=== PATIENT | female | born 1935 | race Caucasian/White ===

== ENCOUNTER → 2016-10-01 | Outpatient (CLI) | payer OTHER | LOC: MMPC 09:00 | PROVIDERS: ATTEND Family Medicine | DX: I10 Essential (primary) hypertension (principal); Z78.0 Asymptomatic menopausal state; J34.89 Other specified disorders of nose and nasal sinuses | CPT/HCPCS: 99214 ==

== ENCOUNTER → 2016-10-03 | Outpatient (CLI) | payer OTHER ==
[2016-10-03 11:04] LABS: BILIRUBIN,TOTAL 0.6 mg/dL (0.3-1.2); LDL CHOLESTEROL,CALCULATED 133.6 mg/dL; TOTAL PROTEIN 7.2 g/dL (6.1-8.0)
[2016-10-03 11:25] LABS: FREE T4 (FREE THYROXINE) 0.79 ng/dL (0.93-1.71)
== END ==
LOC: MOB LAB 09:26
PROVIDERS: ATTEND Family Medicine
DX: I10 Essential (primary) hypertension (principal)
CPT/HCPCS: 36415; 80061; 80076; 84439; 84443

== ENCOUNTER 2016-10-31 16:26 | Observation (INO) | payer OTHER ==
[2016-10-31] MEDS ORDERED: Sodium Chloride 0.9% 1,000 ML PRIMARY IV ONE (16:52)
[2016-10-31] MEDS ORDERED: KETOROLAC 15 MG/1 ML VIAL IVP ONE (16:52)
[2016-10-31] MEDS ORDERED: ONDANSETRON 4 MG/2 ML VIAL IVP ONE (16:52)
[2016-10-31] MEDS ORDERED: MECLIZINE 25 MG CHEWABLE TABLET PO ONE (16:52)
--- NOTE | 2016-10-31 17:01 | PDOC ---
Gen Adult / Medical Screen HPI - General Chief Complaint: General Medical Stated Complaint: dizziness Date Seen by Provider: 10/31/16 Time Seen by Provider: 16:56 Source: POSITIVE: Patient, Other (daughter) Exam Limitations: POSITIVE: No limitations Nurse's Notes Reviewed & Considered: Yes - Indicators Temperature Between 95 and 101 Degrees: Yes Respirations Between 12 and 20: Yes Blood Pressure Between 100-165 (sys) and 60-100 (love): Yes Pulse Range Between 60-105 (100 for age > 60 years): Yes Severe Pain (Greater than 5/10 Reported): No Chest or Abdominal Pain: No Inability to Walk: No Pt Reports Active High Risk Cond. (TB/Hepatitis/HIV/Chemo): No Abnormal Mental Status: No - History of Present Illness Initial Comments: Patient was in her normal state of health this morning, then immediately after lunch began to experience dizziness. She had difficulty ambulating, at one point following an requiring assistance to rise. She arrives here for further evaluation complaining of nausea, dizziness, and feeling as though the world is spinning. Her symptoms were initiated by pain in her right neck. She denies any fever or chills sweats, vomiting, diarrhea, no rashes, no hematuria dysuria. Body Location Affected: REPORTS: Head Timing: REPORTS: Abrupt Duration: 4-6 hours Similar Symptoms Previously: No Recent Care Received: REPORTS: Denies Any Prior Injuries Related to Current Complaint?: No - Patient Home Medications Home Medications: Home Medications Ergocalciferol (Vitamin D2) [Vitamin D2] 1.25 mg ORAL WEEKLY #8 tab 05/04/14 Lisinopril/Hydrochlorothiazide [Lisinopril-Hctz 20-25 Mg Tab] 1 each PO DAILY # 30 tab 08/15/16 Estradiol Vaginal Cream 0.01% [Estrace Vaginal Cream 0.01%] 1 applic VAGINAL QD #1 tube 08/21/16 Brimonidine Tartrate/Timolol [Combigan 0.2%-0.5% Eye Drops] 1 drop OP QD #1 drop 10/01/16 - Patient Allergies Allergies/Adverse Reactions: Allergies Allergy/AdvReac Type Severity Reaction Status Date / Time Penicillins Allergy Intermediate DYSPHORIA Verified 10/31/16 16:34 Shellfish *RETIRED-05/21/12 Allergy Intermediate DYSPHORIA Verified 10/31/16 16: 34 [Shellfish] Past Medical History - heen HEENT History: Macular Degeneration, Dentures/Partials Cardiovascular History: Hypertension Respiratory History: Denies History Gastrointestinal History: Other (please comment) Additional Gastrointestinal History: LOLA, OCCASIONAL CONSTIPATION Genitourinary History: Denies History Endocrine History: Denies History Musculoskeletal History: Osteoporosis, Osteoporosis Prosthesis or Implant: Yes (LEFT KNEE) Neurological History: Motion Sickness Blood Disorders: Denies History Psychiatric History: Denies History History of Sexually Transmitted Diseases: No Female Reproductive History: Other (please comment) Additional Female Reproductive History: tubal ligation Cancer History: Skin Cancer Treatment / Date(s) of Treatment: REMOVED In Past Year Been Physically Harmed or Verbally Threatened: No History of MDRO: No History of Other Communicable Diseases: No Tobacco Use: Never Smoker Alcohol Use: None Substance Use Type: None Previous Surgical History: Yes Type / Date of Surgery: BREAST BX/ LOLA/ COLONOSCOPY/ LEFT KNEE SCOPE/ LEFT TKA / TUBAL Anesthesia Reactions: No Malignant Hyperthermia: No Significant Family History: Heart disease ROS - Limitations ROS Limitations: No Limitations Constitution: REPORTS: Denies Symptoms Cardiovascular: REPORTS: Denies Cardiac Symptoms Respiratory: REPORTS: Denies Resp Symptoms Neurological: REPORTS: Dizziness Gastrointestinal: REPORTS: Nausea Endocrine: REPORTS: Denies Symptoms Musculoskeletal: REPORTS: Neck Pain Genitourinary: REPORTS: Denies Symptoms Eyes: REPORTS: Denies Symptoms ENT: REPORTS: Denies Symptoms Skin: REPORTS: Denies Skin Symptoms Lympathic: REPORTS: Denies Lympathic Symptoms Immunologic: POSITIVE: Denies Symptoms Psychiatric: POSITIVE: Denies Psych Symptoms Gen Adult/Medical Screen Exam - General Appearance General Appearance: POSITIVE: Alert, Cooperative, No Acute Distress, No Evidence of Trauma - HEENT HEENT: POSITIVE: Head Inspection Nml, Eyes Inspection Nml, Ears Inspection Nml, Nose Inspection Nml, Oral/Dental Inspect. Nml, Pharynx Inspect. Nml, PERRL, EOMI - Pupils Pupil Size: 4 mm: Bilateral - Neck Neck: POSITIVE: Normal Inspection, Thyroid Normal - Respiratory Respiratory: POSITIVE: No Respiratory Distress, Breath Sounds Normal, Chest Non- Tender - Cardiovascular Cardiovascular: POSITIVE: Regular Rate & Rhythm, No Murmur, No Gallop, PMI Normal Peripheral Pulses: Carotid (R): 4+ (no bruit), Carotid (L): 4+ (no bruit), Radial (R): 3+, Radial (L): 3+ - Abdomen Abdomen: Soft: (All Quadrants), Normal Bowel Sounds: (All Quadrants), Denies Tenderness: (All Quadrants) - Back Back: POSITIVE: Normal Inspection - Neurological / Psychological Mental Status: POSITIVE: Mood Normal, Affect Normal Orientation: POSITIVE: Oriented x 3 Reflexes: Radial (R): 3+, Radial (L): 3+ - Skin Skin: POSITIVE: Normal Color, Warm, Dry, No Rash - Extremities Extremity: Non-Tender: (All Extremities), Normal ROM: (All Extremities), Normal Inspection: (All Extremities) Procedures - Laceration/Wound Repair Did patient have a laceration repair: No Gen Adlt/Medical Scrn Progress - Results Reviewed by me Xrays/CTs/US Reviewed by me: Yes Discussed with Radiologist: Yes Lab Results Reviewed: Yes Lab Results:: Laboratory Results 10/31/16 10/31/16 Range/Units 16:42 16:52 WBC 8.05 (4.8-10.8) 10^3/uL RBC 4.55 (4.20-5.40) 10^6/uL Hgb 13.9 (12.0-16.0) g/dL Hct 41.0 (37.0-47.0) % MCV 90.1 (81-99) FL MCH 30.5 (27-31) PG MCHC 33.9 (33-37) g/dL RDW Std Deviation 41.2 (39-50) fL RDW Coeff of Gabriel 12.7 (11.5-14.5) % Plt Count 243 (140-350) 10*3/uL MPV 11.1 (7.4-12.2) FL Immature Gran % (Auto) 0.1 (0-5) % Neut % (Auto) 70.4 (50-80) % Lymph % (Auto) 22.0 (10-50) % [place] % (Auto) 6.7 (5-15) % Eos % (Auto) 0.7 (0-8) % Baso % (Auto) 0.1 (0-1) % Immature Gran # (Auto) 0.01 10*3/UL Neut # (Auto) 5.66 10*3/UL Lymph # (Auto) 1.77 10*3/uL [place] # (Auto) 0.54 (0.3-0.8) 10*3/UL Eos # (Auto) 0.06 10*3/UL Baso # (Auto) 0.01 10*3/UL WBC Morphology Comment Normal morphology (NORM) Plt Morphology Comment Normal morphology (NORM) RBC Morph Comment Normal morphology (NORM) Sodium 139 (135-145) meq/L Potassium 3.9 (3.8-5.2) meq/L Chloride 103 (98-112) meq/L Carbon Dioxide 24 (23-33) meq/L Anion Gap 12 (5-20) BUN 20 (7-22) mg/dL Creatinine 0.9 (0.50-1.20) mg/dL Estimated GFR (>60 ml/min/1.73m(2)) BUN/Creatinine Ratio 22.22 H (6-20) Glucose 125 H (78-110) mg/dL Calculated Osmolality 291.0 (267-292) mOsm/kg Calcium 9.8 (8.7-10.7) mg/dL Magnesium 2.0 (1.6-2.4) mg/dL Total Bilirubin 0.4 (0.3-1.2) mg/dL AST 22 (8-39) IU/L ALT 27 (9-52) IU/L Alkaline Phosphatase 123 (38-126) IU/L Total Protein 7.6 (6.1-8.0) g/dL Albumin 4.4 (3.5-4.8) g/dL Globulin 3.3 (2.50-4.10) g/dL Albumin/Globulin Ratio 1.30 (1.3-2.0) mg/g TSH 3.31 (0.2700-4.2000) uIU/mL Free T4 1.00 (0.93-1.71) ng/dL Ur Collection Type Clean catch urine Urine Color Yellow Urine Clarity Clear (CLEAR) Urine pH 6.5 (5.0-8.5) Ur Specific [place] 1.015 (1.005-1.030) Urine Protein Negative (NEG) mg/dl Urine Glucose (UA) Negative (NEG) mg/dL Urine Ketones Trace (NEG) Urine Occult Blood Trace-intact H (NEG) Urine Nitrate Negative (NEG) Urine Bilirubin Negative (NEG) Urine Urobilinogen 0.2 (0.2) EU/dL Ur Leukocyte Esterase Negative (NEG) Urine RBC 3-5 (NONE) /hpf Urine WBC None (NONE) Ur Squamous Epith Cells Few (NONE) Ur Renal Epithelial Cell None (NONE) Urine Crystals None Urine Bacteria Rare (NONE) Urine Casts None (NONE) Urine Mucus Few (NONE) Urine Trichomonas None (NONE) Urine Yeast None (NONE) Ur Culture Indicated? Culture not set - Patient's Progress Re-Examine Time: 18:56 Status: POSITIVE: Unchanged MDM / ED Course: Patient was evaluated, IV started, blood drawn and sent to the lab for studies, radiographic studies obtained. She received IV normal saline, Zofran, and oral meclizine. Initially her dizziness seemed to improve. She was ambulated and had return of dizziness. Findings: CT scan of her head shows no acute intracranial abnormality. CBC is within normal limits. Conference of metabolic panel shows a glucose of 120. Urinalysis shows microscopic blood present, rare bacteria. Assessment: Dizziness. Plan: Admission. - Consult Consult (If Yes, Name of Consulting MD & Time Called): Yes (Dr. Graves) Consulting MD will see pt:: POSITIVE: [facility] Admit Counseled: POSITIVE: Patient, Family, RE: Lab Results, RE: Radiology Results, RE : DX Patient Care Time - Estimated PCT Patient Care Time (In Minutes): 30 Vital Signs - Recent Vital Signs Vital Signs: Vital Signs (Last 8 hours) Temp Pulse Resp BP Pulse Ox 10/31/16 16:35 96.4 F L 81 18 140/79 98 - VS Reviewed Vital Signs Reviewed: Yes Discharge Clinical Impression: Dizziness Discharge Disposition: Admit to Observation Condition: Stable Patient Instructions Given at Discharge: Dizziness (ED) Follow Up With: SONNY DEAN [Primary Care Provider] - Date Decision to Admit to Inpatient: 10/31/16 Time Decision to Admit to Inpatient: 18:57
[2016-10-31 17:07] LABS: BASOPHILS # (AUTO) 0.01 10*3/UL; BASOPHILS % (AUTO) 0.1 % (0-1); EOSINOPHILS % (AUTO) 0.7 % (0-8); HEMOGLOBIN 13.9 g/dL (12.0-16.0); IMM GRAN % (AUTO) 0.1 % (0-5); IMM GRAN# (AUTO) 0.01 10*3/UL; LYMPHOCYTES # (AUTO) 1.77 10*3/uL; MEAN CORPUSCULAR HEMOGLOBIN 30.5 PG (27-31); MEAN CORPUSCULAR HGB CONC 33.9 g/dL (33-37); MEAN PLATELET VOLUME 11.1 FL (7.4-12.2); MONOCYTES # (AUTO) 0.54 10*3/UL (0.3-0.8); MONOCYTES % (AUTO) 6.7 % (5-15); NEUTROPHILS # (AUTO) 5.66 10*3/UL; NEUTROPHILS % (AUTO) 70.4 % (50-80); RDW COEFFICIENT OF VARIATION 12.7 % (11.5-14.5); RED BLOOD COUNT 4.55 10^6/uL (4.20-5.40); WHITE BLOOD COUNT 8.05 10^3/uL (4.8-10.8)
[2016-10-31 17:09] LABS: PLATELET MORPHOLOGY COMMENT NORMAL MORPHOLOGY (NORM)
[2016-10-31 17:16] LABS: BUN/CREATININE RATIO 22.22 (6-20); CREATININE 0.9 mg/dL (0.50-1.20); POTASSIUM 3.9 meq/L (3.8-5.2)
[2016-10-31 17:17] LABS: BILIRUBIN,TOTAL 0.4 mg/dL (0.3-1.2); CALCIUM 9.8 mg/dL (8.7-10.7); TOTAL PROTEIN 7.6 g/dL (6.1-8.0)
--- NOTE | 2016-10-31 18:03 | DI ---
CT HEAD W/O CONTRAST,10/31/2016 5:03 PM: Clinical History: Dizziness Previous Exam: December 13, 2012 Findings: Multiple helically acquired CT images are obtained through the brain without contrast, and demonstrat e normal, symmetric ventricles and other CSF containing spaces. There is no mass, hemorrhage or midli ne shift. There are peripheral vascular calcifications within the right vertebral artery. Left verteb ral artery is not seen on this exam, but was also not seen on the prior exam. The intraorbital structures and paranasal sinuses are unremarkable. Impression: Mild diffuse age-related volume loss otherwise unremarkable.
[2016-10-31 18:36] LABS: BILIRUBIN,URINE NEGATIVE (NEG); CLARITY,URINE CLEAR (CLEAR); GLUCOSE, URINE (UA) NEGATIVE (NEG); LEUKOCYTE ESTERASE ,URINE NEGATIVE (NEG); NITRATE,URINE NEGATIVE (NEG); OCCULT BLOOD,URINE Trace-intact (NEG); PH,URINE 6.5 (5.0-8.5); PROTEIN,URINE NEGATIVE (NEG); UROBILINOGEN,URINE 0.2 EU/dL (0.2)
[2016-10-31 18:41] LABS: URINE SAMPLE TYPE CLEAN CATCH URINE
[2016-10-31 18:42] LABS: BACTERIA,URINE RARE; SQUAMOUS EPITHELIAL CELL,UR FEW
[2016-10-31] MEDS ORDERED: CEPHALEXIN 500 MG CAPSULE PO ONE (18:50)
--- NOTE | 2016-10-31 19:20 | PDOC ---
History and Physical - History of Present Illness Date and Time of Service: 10/31/2016 Chief Complaint: Dizziness that started today History of Present Illness: This is an 81 years old female with medical history significant for history of hypertension, macular degeneration and osteoporosis who came into the hospital because of history of dizziness. Today she said she had some sharp pain in her neck that lasted for a few seconds and then went away then went to the beauty shop and came back feeling dizzy with spinning sensation she laid down then she got up and she felt unsteady apparently fell and lay on the ground until her family came in and then they brought her to the hospital. She came into the hospital by around 2 PM. She did have a history of vertigo before about 3 years ago but she did not end up in the hospital. She denied double vision, denied difficulty with speech, and no numbness or weakness one side or the other. she complain from some mild headache. Some mild nausea. Past Medical History Medical History: 1. Hypertension. 2. Age-related macular degeneration. 3. Osteoporosis Surgical History: 1. Cholecystectomy. 2. Left Total knee replacement Family History: Reviewed an Not Pertinent Past Social History: Doesn't smoke doesn't drink, lives by herself in independent no drugs. Tobacco Use: Never Smoker Substance Use Type: None Alcohol Use: None Medication / Allergies Home Medications: Home Medications Medication Instructions Recorded Confirmed Type Ergocalciferol (Vitamin D2) 1.25 mg ORAL WEEKLY #8 tab 05/04/14 10/31/16 Clinic [Vitamin D2] Lisinopril/Hydrochlorothiazide 1 each PO DAILY #30 tab 08/15/16 10/31/16 Clinic [Lisinopril-Hctz 20-25 Mg Tab] Estradiol Vaginal Cream 0.01% 1 applic VAGINAL QD #1 tube 08/21/16 10/31/16 Clinic [Estrace Vaginal Cream 0.01%] Brimonidine Tartrate/Timolol 1 drop OP QD #1 drop 10/01/16 10/31/16 History [Combigan 0.2%-0.5% Eye Drops] Allergies/Adverse Reactions: Allergies Allergy/AdvReac Type Severity Reaction Status Date / Time Penicillins Allergy Intermediate DYSPHORIA Verified 10/31/16 16:34 Shellfish *RETIRED-05/21/12 Allergy Intermediate DYSPHORIA Verified 10/31/16 16: 34 [Shellfish] Review of Systems - Review of Systems All Systems: Reviewed & No Additional Complaints Except as Stated Exam - General General Appearance: POSITIVE: No Acute Distress, Cooperative, Thin - Head Head Exam: POSITIVE: Normal Inspection, Atraumatic - Eye Eye Exam: POSITIVE: Normal Appearance - ENT ENT Exam: POSITIVE: Normal Exam Additonal ENT Exam Details: Some earwax noted - Neck Neck Exam: POSITIVE: Normal Inspection, No Lymphadenopathy - Respiratory Respiratory Exam: POSITIVE: Clear to Auscultation - Bilaterally - Cardiovascular Cardiovascular Exam: POSITIVE: RRR - GI/Abdominal GI/Abdominal Exam: POSITIVE: Normal Bowel Sounds, Non Tender, Non Distended, Soft - Rectal Rectal Exam: POSITIVE: Deferred - External Exam: POSITIVE: Deferred - Extremities Extremities Exam: POSITIVE: Normal Inspection - Back Back Exam: POSITIVE: Normal Inspection - Neurological Neurological Exam: POSITIVE: Alert, Oriented x 3, CN II-XII Intact, Moves All Extremities Equally Additional Neurological Exam Details: No incoordination noted, and no nystagmus and no double vision - Psychiatric Psychiatric Exam: POSITIVE: Normal Affect - Integumentary Integumentary Exam: POSITIVE: Normal Color Results - Labs CBC and BMP: 10/31/16 16:42 10/31/16 16:42 - Imaging Status: Report Reviewed by Me Assessment and Plan - Patient Problems (1) Dizziness Current Visit: Yes Status: Acute Comment: This looks more like vertigo and likely peripheral in etiology. I think though because of her age and history of hypertension we'll do an MRI tomorrow. Will put her on meclizine may ask the occupational therapist for vestibular maneuvering after the MRI. (2) Hypertension Current Visit: Yes Status: Acute Comment: Same med starting tomorrow
[2016-10-31] MEDS ORDERED: ONDANSETRON 4 MG/2 ML VIAL IVP PRN (19:55)
[2016-10-31] MEDS ORDERED: NORMAL SALINE 10 ML SYRINGE FLUSH IVP PRN (20:03)
[2016-10-31] MEDS ORDERED: ACETAMINOPHEN 325 MG TABLET PO PRN (20:06)
[2016-10-31] MEDS: Sodium Chloride 0.9% 1,000 ML IV SCH (20:25)
[2016-10-31] MEDS ORDERED: LISINOPRIL 20 MG TABLET PO SCH (21:00)
[2016-10-31] MEDS ORDERED: MECLIZINE 25 MG CHEWABLE TABLET PO SCH (21:00)
[2016-11-01] MEDS ORDERED: MECLIZINE 25 MG CHEWABLE TABLET PO PRN (07:39)
--- NOTE | 2016-11-01 07:45 | PDOC(PROG) ---
Date and Time of Service: 11/01/2016 7:42 AM Interval History: Subjective Feels better this morning compared to yesterday, she is tired but not dizzy anymore. No other symptoms. Objective : Data - Labs CBC and BMP: 10/31/16 16:42 10/31/16 16:42 Objective : Exam - General General Appearance: No Acute Distress, Cooperative - Head Head Exam: Normal Inspection - Eye Eye Exam: Normal Appearance - ENT ENT Exam: Normal Exam - Neck Neck Exam: Normal Inspection - Respiratory Respiratory Exam: Clear to Auscultation - Bilaterally - Cardiovascular Cardiovascular Exam: RRR - GI/Abdominal GI/Abdominal Exam: Normal Bowel Sounds, Non Tender, Non Distended, Soft - Rectal Rectal Exam: Deferred - External Exam: Deferred - Extremities Extremities Exam: Normal Inspection - Back Back Exam: Normal Inspection - Neurological Neurological Exam: Alert, Oriented x 3, CN II-XII Intact, Moves All Extremities Equally - Psychiatric Psychiatric Exam: Normal Affect - Integumentary Integumentary Exam: Normal Color Assessment and Plan - Patient Problems (1) Dizziness Current Visit: Yes Status: Acute Comment: More vertigo like symptoms, I think it is more peripheral in etiology will do an MRI because of her age and history of hypertension, will cut back on the fluid and will ask the them to work her around and see how she feels and then decide about disposition (2) Hypertension Current Visit: Yes Status: Acute Comment: Same med
[2016-11-01 08:00] VITALS: RESP 18
[2016-11-01] MEDS: Sodium Chloride 0.9% 1,000 ML IV SCH (08:21)
--- NOTE | 2016-11-01 09:22 | DI ---
MRI BRAIN W/O CN,11/01/2016 8:00 AM: Clinical History: Vertigo Previous Exam: CT head performed October 31, 2016 Findings: Multiplanar MR images are obtained through the brain without contrast. Ventricles and other CSF containing spaces are normal and symmetric. There are multiple scattered are as of increased FLAIR and T2 signal within the periventricular and subcortical white matter. There is no abnormally restricted diffusion. The intraorbital structures are unremarkable. The major vascular flow voids are also unremarkable. The midline structures are unremarkable. The parasellar region of the cerebellopontine angles are nor mal. There is no evidence of Chiari malformation. Signal within the clivus is normal. Visualized portions of the upper cervical spine are unremarkable as well. Impression: 1. No evidence of acute ischemia. 2. Multiple scattered areas of increased FLAIR and T2 signal within the periventricular and subcortic al white matter most consistent with chronic small vessel ischemia.
--- NOTE | 2016-11-01 09:50 | DI ---
MRI MRA NECK W/O CN,11/01/2016 8:00 AM: Clinical History: Vertigo] pain. Previous Exam: None at this facility. Findings: Multiplanar MR images are obtained through the neck following a 2-D [id number] protocol, and demo nstrate a normal three-vessel arch. There is some dropout of signal near the origin of the left common carotid, but this is believed to b e due to some tortuosity near the origin not to a true stenosis. There are is normal course and caliber throughout the carotid systems bilaterally. The external carot id artery is within normal limits. There is some decreased signal at the carotid siphon bilaterally, but this is also due to out of plane tortuosity rather than true stenosis. Visualized portions of the [place] of [place] are unremarkable without evidence of aneurysmal dilation. The left vertebral artery is diminutive, but demonstrates a constant caliber throughout its course. T he right vertebral artery is dominant and demonstrates a normal course and caliber throughout without evidence of stenosis or aneurysmal dilation. Impression: Normal MRA neck.
--- NOTE | 2016-11-01 11:34 | DCSUMMARY ---
Hospitalization Summary Admit Date: 10/31/16 Discharge Date: 11/01/16 Hospital Course: Discharge diagnoses 1. Dizziness/vertigo resolved 2. History of hypertension 3. History of osteoporosis 4. History of glaucoma 5. Macular degeneration 6. chronic small vessel ischemic disease 7. tarce blood in the UA, unclear significance need repeat as an outpatient Hospital course This is a 81 years old female with medical history significant for history of hypertension, GERD, macular degeneration and osteoporosis who came into the hospital because of history of dizziness. The day of admission she said she had some sharp pain in the neck which lasted for a few seconds then went away then she went to the [employer] shop and came back feeling dizzy with spinning sensation like feeling. She laid down and then she got up and she felt unsteady apparently she fell on her buttocks and lay on the ground until her family came in and they brought her to the hospital. She did give a history of vertigo before about 3 years ago she did not need to be in the hospital for it. She denied double vision, difficulty with speech and no focal numbness or weakness. Exam when I saw her was not remarkable there was no nystagmus and no weakness or incoordination. CT of the head was negative. Because of her history of hypertension and her age we did an MRI of her brain and MRA there were negative. On the day of discharge she was feeling better the dizziness improved she walked around did ok with no dizziness or unsteadiness so we discharged her home and follow-up with her primary as an outpatient. I thinks the vertigo was probably peripheral in etiology we wrote for Antivert as needed. I did tell her to write her blood pressure numbers for the next week and presented to her primary. She did have a UA when she came in there was trace of blood in it otherwise doesn't have any symptoms, I think this can be followed up later on as an outpatient with repeat UA to make sure that there is no more blood. I did not think it was infected. Laboratory Results 10/31/16 10/31/16 Range/Units 16:42 16:52 WBC 8.05 (4.8-10.8) 10^3/uL RBC 4.55 (4.20-5.40) 10^6/uL Hgb 13.9 (12.0-16.0) g/dL Hct 41.0 (37.0-47.0) % MCV 90.1 (81-99) FL MCH 30.5 (27-31) PG MCHC 33.9 (33-37) g/dL RDW Std Deviation 41.2 (39-50) fL RDW Coeff of Gabriel 12.7 (11.5-14.5) % Plt Count 243 (140-350) 10*3/uL MPV 11.1 (7.4-12.2) FL Immature Gran % (Auto) 0.1 (0-5) % Neut % (Auto) 70.4 (50-80) % Lymph % (Auto) 22.0 (10-50) % [place] % (Auto) 6.7 (5-15) % Eos % (Auto) 0.7 (0-8) % Baso % (Auto) 0.1 (0-1) % Immature Gran # (Auto) 0.01 10*3/UL Neut # (Auto) 5.66 10*3/UL Lymph # (Auto) 1.77 10*3/uL [place] # (Auto) 0.54 (0.3-0.8) 10*3/UL Eos # (Auto) 0.06 10*3/UL Baso # (Auto) 0.01 10*3/UL WBC Morphology Comment Normal morphology (NORM) Plt Morphology Comment Normal morphology (NORM) RBC Morph Comment Normal morphology (NORM) Sodium 139 (135-145) meq/L Potassium 3.9 (3.8-5.2) meq/L Chloride 103 (98-112) meq/L Carbon Dioxide 24 (23-33) meq/L Anion Gap 12 (5-20) BUN 20 (7-22) mg/dL Creatinine 0.9 (0.50-1.20) mg/dL Estimated GFR (>60 ml/min/1.73m(2)) BUN/Creatinine Ratio 22.22 H (6-20) Glucose 125 H (78-110) mg/dL Calculated Osmolality 291.0 (267-292) mOsm/kg Calcium 9.8 (8.7-10.7) mg/dL Magnesium 2.0 (1.6-2.4) mg/dL Total Bilirubin 0.4 (0.3-1.2) mg/dL AST 22 (8-39) IU/L ALT 27 (9-52) IU/L Alkaline Phosphatase 123 (38-126) IU/L Total Protein 7.6 (6.1-8.0) g/dL Albumin 4.4 (3.5-4.8) g/dL Globulin 3.3 (2.50-4.10) g/dL Albumin/Globulin Ratio 1.30 (1.3-2.0) mg/g TSH 3.31 (0.2700-4.2000) uIU/mL Free T4 1.00 (0.93-1.71) ng/dL Ur Collection Type Clean catch urine Urine Color Yellow Urine Clarity Clear (CLEAR) Urine pH 6.5 (5.0-8.5) Ur Specific [place] 1.015 (1.005-1.030) Urine Protein Negative (NEG) mg/dl Urine Glucose (UA) Negative (NEG) mg/dL Urine Ketones Trace (NEG) Urine Occult Blood Trace-intact H (NEG) Urine Nitrate Negative (NEG) Urine Bilirubin Negative (NEG) Urine Urobilinogen 0.2 (0.2) EU/dL Ur Leukocyte Esterase Negative (NEG) Urine RBC 3-5 (NONE) /hpf Urine WBC None (NONE) Ur Squamous Epith Cells Few (NONE) Ur Renal Epithelial Cell None (NONE) Urine Crystals None Urine Bacteria Rare (NONE) Urine Casts None (NONE) Urine Mucus Few (NONE) Urine Trichomonas None (NONE) Urine Yeast None (NONE) Ur Culture Indicated? Culture not set Discharge instruction Diet regular Activity as started Medications Home Medications Ergocalciferol (Vitamin D2) [Vitamin D2] 1.25 mg ORAL WEEKLY #8 tab 05/04/14 [ Clinic Confirmed 10/31/16] Lisinopril/Hydrochlorothiazide [Lisinopril-Hctz 20-25 mg Tab] 1 each PO DAILY # 30 tab 08/15/16 [Clinic Confirmed 10/31/16] Estradiol Vaginal Cream 0.01% [Estrace Vaginal Cream 0.01%] 1 applic VAGINAL QD #1 tube 08/21/16 [Clinic Confirmed 10/31/16] Brimonidine Tartrate/Timolol [Combigan 0.2%-0.5% Eye Drops] 1 drop OP QD #1 drop 10/01/16 [History Confirmed 10/31/16] Meclizine HCl [Antivert] 25 mg PO TID PRN #12 tab.chew 11/01/16 [Rx] Follow-up with her PCP 1-2 weeks Condition at discharge was stable for discharge Exam - Vitals Vital Signs: Vital Signs Temperature 97.3 F Temperature Source Temporal Artery Scan Pulse Rate [Apical] 68 Pulse Rate [Pulse Oximeter] 73 Pulse Rate 63 Respiratory Rate 18 Blood Pressure [Left Arm] 142/64 Blood Pressure [Right Arm] 107/46 Pulse Ox 97 Oxygen Delivery Method Room Air Height 5 ft 5 in Weight 132 lb 9.6 oz Patient Problems - Patient Problem List (1) Dizziness Status: Acute (2) Hypertension Status: Acute
[2016-11-01 13:00] VITALS: TEMP 97.6
[2016-11-01] MEDS ORDERED: LISINOPRIL 20 MG TABLET PO SCH ×2 (21:00)
== END 2016-11-01 13:21 | disposition home or self-care (01) ==
LOC: ER 16:26 → MED/SURG 18:57
PROVIDERS: ADMIT Internal Medicine; ATTEND Internal Medicine
DX: R42 Dizziness and giddiness (principal); I10 Essential (primary) hypertension; M81.0 Age-related osteoporosis without current pathological fracture; H40.9 Unspecified glaucoma; H35.30 Unspecified macular degeneration; R31.9 Hematuria, unspecified; K21.9 Gastro-esophageal reflux disease without esophagitis
CPT/HCPCS: 70450; 70547; 70551; 80053; 81001; 81003; 83735; 84439; 84443; 85025; 94761; 96374; 96375; 99284; J1885; J2405; J7030

== ENCOUNTER → 2016-11-19 | Outpatient (CLI) | payer OTHER | LOC: MMPC 09:00 | PROVIDERS: ATTEND Family Medicine | DX: R42 Dizziness and giddiness (principal) | CPT/HCPCS: 99214; G0463 ==

== ENCOUNTER 2018-03-05 08:41 | Observation (INO) ==
[2018-03-05] MEDS ORDERED: MORPHINE SULFATE 2 MG/1 ML IVP ONE (09:07)
[2018-03-05] MEDS ORDERED: NITROGLYCERIN 0.4 MG SL TAB (BOTTLE OF 3) SL ONE (09:07)
[2018-03-05] MEDS ORDERED: ONDANSETRON 4 MG/2 ML VIAL IVP ONE (09:07)
[2018-03-05] MEDS ORDERED: Sodium Chloride 0.9% 1,000 ML PRIMARY IV ONE (09:07)
[2018-03-05 09:13] LABS: BASOPHILS # (AUTO) 0.02 10*3/UL; BASOPHILS % (AUTO) 0.4 % (0-1); EOSINOPHILS # (AUTO) 0.07 10*3/UL; EOSINOPHILS % (AUTO) 1.4 % (0-8); Hematocrit [HCT] 41.8 % (37.0-47.0); Hemoglobin [HGB] 14.1 g/dL (12.0-16.0); LYMPHOCYTES # (AUTO) 1.52 10*3/uL; MEAN CORPUSCULAR HEMOGLOBIN 30.8 PG (27-31); MEAN CORPUSCULAR HGB CONC 33.7 g/dL (33-37); MEAN CORPUSCULAR VOLUME 91.3 FL (81-99); MEAN PLATELET VOLUME 11.3 FL (7.4-12.2); MONOCYTES # (AUTO) 0.51 10*3/UL (0.3-0.8); MONOCYTES % (AUTO) 10.2 % (5-15); NEUTROPHILS # (AUTO) 2.89 10*3/UL; NEUTROPHILS % (AUTO) 57.5 % (50-80); RED BLOOD COUNT 4.58 10^6/uL (4.20-5.40)
--- NOTE | 2018-03-05 09:13 | PDOC ---
Gen Adult / Medical Screen HPI - General Chief Complaint: General Medical Stated Complaint: hypertension Date Seen by Provider: 03/05/18 Time Seen by Provider: 08:55 Source: POSITIVE: Patient Exam Limitations: POSITIVE: No limitations Nurse's Notes Reviewed & Considered: Yes - Indicators Temperature Between 95 and 101 Degrees: Yes Respirations Between 12 and 20: Yes Blood Pressure Between 100-165 (sys) and 60-100 (love): Yes Pulse Range Between 60-105 (100 for age > 60 years): Yes Severe Pain (Greater than 5/10 Reported): No Chest or Abdominal Pain: Yes Inability to Walk: No Pt Reports Active High Risk Cond. (TB/Hepatitis/HIV/Chemo): No Abnormal Mental Status: No - History of Present Illness Initial Comments: This is a well-developed, well-nourished, very neat and pleasant, 82-year-old female, complaining of bilateral shoulder pain and chest pain. Patient was seen by primary care physician on Friday for similar complaints at which time EKG and labs were done and the patient was told to follow-up for a cardiac stress test and a report to the emergency room if she had worsening symptoms. She comes in today because she's had increased pain across her shoulders, neck, and chest. Patient states today she's had headache, neck pain, bilateral shoulder pain, denies any sore throat, she does have chest pain that she described as pressure, denies any shortness of breath, no cough, no nausea vomiting or diarrhea, however for some extended period of time she has been experiencing alternating constipation and diarrhea with constipation being more predominate. The symptoms of constipation alternating with diarrhea seem to be increasing. No hematuria or dysuria, no myalgias or arthralgias, no rashes, she denies any fever chills or sweats. Body Location Affected: REPORTS: Head, Neck, Chest Timing: REPORTS: Constant Duration: Unknown Similar Symptoms Previously: Yes Recent Care Received: REPORTS: Denies Any Prior Injuries Related to Current Complaint?: No - Patient Home Medications Home Medications: Home Medications Ergocalciferol (Vitamin D2) [Vitamin D2] 1.25 mg ORAL WEEKLY #8 tab 05/04/14 Estradiol Vaginal Cream 0.01% [Estrace Vaginal Cream 0.01%] 1 applic VAGINAL QD #1 tube 08/21/16 Brimonidine Tartrate/Timolol [Combigan 0.2%-0.5% Eye Drops] 1 drp OP QD #1 drp 10/01/16 Meclizine HCl [Antivert] 25 mg PO TID PRN #12 tab.chew 11/01/16 lisinopril 20 mg-hydrochlorothiazide 25 mg tablet 1 ea PO DAILY #30 tab nitroglycerin 0.3 mg sublingual tablet 0.3 mg SL Q5M PRN #10 tab 03/03/18 simvastatin 20 mg tablet 20 mg PO QPM #30 tab 03/03/18 - Patient Allergies Allergies/Adverse Reactions: Allergies 3 Allergy/AdvReac Type Severity Reaction Status Date / Time Penicillins Allergy Intermediate DYSPHORIA Verified 03/03/18 13:42 Shellfish *RETIRED-05/21/12 Allergy Intermediate DYSPHORIA Verified 03/03/18 13: 42 [Shellfish] Past Medical History - heen HEENT History: Macular Degeneration, Dentures/Partials Cardiovascular History: Hypertension, CAD Respiratory History: Denies History Gastrointestinal History: Other (please comment) Additional Gastrointestinal History: LOLA, OCCASIONAL CONSTIPATION Genitourinary History: Denies History Endocrine History: Denies History Musculoskeletal History: Osteoporosis, Osteoporosis Prosthesis or Implant: Yes (LEFT KNEE) Neurological History: Motion Sickness Blood Disorders: Denies History Psychiatric History: Denies History History of Sexually Transmitted Diseases: No Female Reproductive History: Denies History Obstetrical History: Denies History Cancer History: Skin Cancer Treatment / Date(s) of Treatment: REMOVED In Past Year Been Physically Harmed or Verbally Threatened: No History of MDRO: No History of Other Communicable Diseases: No Tobacco Use: Never Smoker Alcohol Use: None In the Past 12 Months, Have Used or Abuse Any Substance: None Previous Surgical History: Yes Type / Date of Surgery: BREAST BX/ LOLA/ COLONOSCOPY/ LEFT KNEE SCOPE/ LEFT TKA / TUBAL Anesthesia Reactions: No Malignant Hyperthermia: No Significant Family History: Heart disease ROS - Limitations ROS Limitations: No Limitations Constitution: REPORTS: Denies Symptoms Cardiovascular: REPORTS: Chest Pain Respiratory: REPORTS: Denies Resp Symptoms Neurological: REPORTS: Headache Gastrointestinal: REPORTS: Diarrhea, Constipation Endocrine: REPORTS: Denies Symptoms Musculoskeletal: REPORTS: Joint Pain (Bilateral shoulder pain), Neck Pain Genitourinary: REPORTS: Denies Symptoms Eyes: REPORTS: Denies Symptoms ENT: REPORTS: Denies Symptoms Skin: REPORTS: Denies Skin Symptoms Lympathic: REPORTS: Denies Lympathic Symptoms Immunologic: POSITIVE: Denies Symptoms Psychiatric: POSITIVE: Denies Psych Symptoms Gen Adult/Medical Screen Exam - General Appearance General Appearance: POSITIVE: Alert, Cooperative, No Acute Distress, No Evidence of Trauma - HEENT HEENT: POSITIVE: Head Inspection Nml, Eyes Inspection Nml, Ears Inspection Nml, Nose Inspection Nml, Oral/Dental Inspect. Nml, Pharynx Inspect. Nml, PERRL, EOMI - Pupils Pupil Size: 4 mm: Bilateral - Neck Neck: POSITIVE: Normal Inspection (No carotid bruits auscultated), Thyroid Normal - Respiratory Respiratory: POSITIVE: No Respiratory Distress, Breath Sounds Normal, Chest Non- Tender - Cardiovascular Cardiovascular: POSITIVE: Regular Rate & Rhythm, No Murmur, No Gallop, PMI Normal Peripheral Pulses: Radial (R): 4+ - Abdomen Abdomen: Soft: (All Quadrants), Normal Bowel Sounds: (All Quadrants), No Splenomegaly: (All Quadrants), No Hepatomegaly: (All Quadrants), No Guarding: ( All Quadrants), No Rebound: (All Quadrants), No Palpable Pulse: (All Quadrants) , No Palpabale Mass: (All Quadrants), No Distention: (All Quadrants), No Rigidity: (All Quadrants), Tenderness Noted: (All Quadrants) - Back Back: POSITIVE: Normal Inspection - Neurological / Psychological Mental Status: POSITIVE: Mood Normal, Affect Normal Orientation: POSITIVE: Oriented x 3 - Skin Skin: POSITIVE: Normal Color, Warm, Dry, No Rash - Extremities Extremity: Non-Tender: (All Extremities), Normal ROM: (All Extremities), Normal Inspection: (All Extremities), Pelvis Stable: (All Extremities) Procedures - Laceration/Wound Repair Did patient have a laceration repair: No Gen Adlt/Medical Scrn Progress - Results Reviewed by me Xrays/CTs/US Reviewed by me: Yes Discussed with Radiologist: Yes Lab Results Reviewed by Me: Yes CBC and BMP: 03/05/18 09:07 03/05/18 09:07 Lab Results:: Laboratory Results 3 03/05/18 03/05/18 03/05/18 09:07 09:07 09:07 WBC 5.02 RBC 4.58 Hgb 14.1 Hct 41.8 MCV 91.3 MCH 30.8 MCHC 33.7 RDW Std Deviation 42.6 RDW Coeff of Gabriel 13.1 Plt Count 200 MPV 11.3 Immature Gran % (Auto) 0.2 Neut % (Auto) 57.5 Lymph % (Auto) 30.3 [place] % (Auto) 10.2 Eos % (Auto) 1.4 Baso % (Auto) 0.4 Immature Gran # (Auto) 0.01 Neut # (Auto) 2.89 Lymph # (Auto) 1.52 [place] # (Auto) 0.51 Eos # (Auto) 0.07 Baso # (Auto) 0.02 WBC Morphology Comment Normal morphology Plt Morphology Comment Normal morphology RBC Morph Comment Normal morphology D-Dimer 0.64 H Sodium 141 Potassium 3.6 L Chloride 104 Carbon Dioxide 27 Anion Gap 10 BUN 20 Creatinine 1.0 BUN/Creatinine Ratio 20.00 Glucose 106 Calculated Osmolality 294.0 H Calcium 9.8 Magnesium 1.8 Total Bilirubin 0.6 AST 27 ALT 27 Alkaline Phosphatase 60 CK-MB (CK-2) Troponin I C-Reactive Protein 0.6 NT-Pro-B Natriuret Pep 362 Total Protein 7.9 Albumin 4.5 Globulin 3.4 Albumin/Globulin Ratio 1.30 TSH Free T4 3 03/05/18 03/05/18 09:07 09:07 WBC RBC Hgb Hct MCV MCH MCHC RDW Std Deviation RDW Coeff of Gabriel Plt Count MPV Immature Gran % (Auto) Neut % (Auto) Lymph % (Auto) [place] % (Auto) Eos % (Auto) Baso % (Auto) Immature Gran # (Auto) Neut # (Auto) Lymph # (Auto) [place] # (Auto) Eos # (Auto) Baso # (Auto) WBC Morphology Comment Plt Morphology Comment RBC Morph Comment D-Dimer Sodium Potassium Chloride Carbon Dioxide Anion Gap BUN Creatinine BUN/Creatinine Ratio Glucose Calculated Osmolality Calcium Magnesium Total Bilirubin AST ALT Alkaline Phosphatase CK-MB (CK-2) 0.78 Troponin I < 0.012 C-Reactive Protein NT-Pro-B Natriuret Pep Total Protein Albumin Globulin Albumin/Globulin Ratio TSH 4.17 Free T4 0.95 EKG Interpreted/Reviewed By Me:: Yes (patient's EKG shows a sinus rhythm with a rate of 69 beats a minute.) EKG Interpretation:: POSITIVE: Normal Sinus Rhythm - Patient's Progress Pain Medication Addressed: POSITIVE: Not Applicable Re-Examine Time: 11:56 Status: POSITIVE: Improved MDM / ED Course: Patient was evaluated, an IV started, blood drawn and sent to the lab for studies, EKG and radiographic examinations were also obtained. Findings: EKG, as interpreted by me, shows sinus rhythm with a rate of 69 beats a minute. Chest x-ray shows no acute cardiopulmonary decompensation. CTA of her chest shows no PE present. There is noted to be coronary arterial disease present. CT of her abdomen and pelvis shows no acute intra-abdominal abnormalities. Aortic and bi-Iliac artery calcifications are present. D-dimer is elevated at 0.64. BNP is 362. Troponin and CK-MB are normal. CBC and CMP are normal. TSH and free T4 are normal. Magnesium is normal. CRP is normal. Assessment: Chest pain with normal troponin and EKG. CT scan of her chest does show coronary arterial disease present. Plan: Admission for chest pain and rule out. - Consult Consult (If Yes, Name of Consulting MD & Time Called): Yes (Dr. Lopez 1155hrs) Consulting MD will see pt:: POSITIVE: [facility] [place] Admit Counseled: POSITIVE: Patient, RE: Lab Results, RE: Radiology Results, RE: DX Patient Care Time - Estimated PCT Patient Care Time (In Minutes): 45 Vital Signs - Recent Vital Signs Vital Signs: Vital Signs (Last 8 hours) Temp Pulse Resp BP Pulse Ox 03/05/18 10:45 96.4 F L 73 14 148/78 98 03/05/18 08:41 95.8 F L 74 16 138/77 99 - VS Reviewed Vital Signs Reviewed: Yes Discharge Clinical Impression: Chest pain Discharge Disposition: Admit to Inpatient Condition: Stable Patient Instructions Given at Discharge: Chest Pain (ED) Follow Up With: SONNY DEAN [Primary Care Provider] - Date Decision to Admit to Inpatient: 03/05/18 Time Decision to Admit to Inpatient: 12:00
[2018-03-05 09:25] LABS: BLOOD UREA NITROGEN 20 mg/dL (7-22); SERUM ALBUMIN 4.5 g/dL (3.5-4.8)
[2018-03-05 09:27] LABS: PLATELET MORPHOLOGY COMMENT NORMAL MORPHOLOGY (NORM); RBC MORPHOLOGY COMMENT NORMAL MORPHOLOGY (NORM); WBC MORPHOLOGY COMMENT NORMAL MORPHOLOGY (NORM)
--- NOTE | 2018-03-05 10:17 | DI ---
AP CHEST X-RAY, 03/05/2018 9:07 AM : Clinical History: Chest pain. Previous Exam: None at this facility. There is no acute soft tissue or bony abnormality. Heart size is normal. Lungs are clear. Mediastinal structures are normal. There are no pulmonary nodules. Reading: Normal chest x-ray.
--- NOTE | 2018-03-05 11:06 | DI ---
CT ANGIOGRAM OF THE CHEST, 03/05/2018 9:37 AM : Clinical History: Chest pain. Shortness of breath. Elevated D-dimer test. Previous Exam: None at this facility. Scans are performed from the base of the neck to the lower lung bases with IV contrast. 65 mL of Isov ue 370 was injected IV. Proprietary automated bolus tracking software was used to verify the timing o f the injection. The base of the neck and thoracic inlet are normal. There are no abnormal axillary, supraclavicular, mediastinal, or hilar nodes. The heart is normal. There are calcifications in the left mainstem and s cattered calcifications in the proximal third of the LAD and proximal portions of the left circumflex artery and the right coronary artery. The pulmonary arteries are normal. There is no pulmonary arter ial hypertension. There is no evidence of pulmonary embolism or pulmonary infarction. The lungs are c lear and there are no pulmonary nodules or masses. READIN. Normal CTA of the chest. There are no pulmonary emboli or pulmonary infarcts. 2. Coronary artery disease with punctate calcifications in the left mainstem, proximal third of the LAD, and proximal portions of the left circumflex and right coronary arteries.
--- NOTE | 2018-03-05 11:49 | DI ---
CT ABDOMEN SCAN WITH IV CONTRAST, 03/05/2018 9:37 AM : Clinical History: Abdominal pain with alternating diarrhea and constipation. Previous Exam: None at this facility. Scans are performed from the lower lung bases through the liver and kidneys with IV contrast. This is the same bolus of contrast used for the CTA scan of the chest. No oral or rectal contrast was ordere d. The lung bases are clear. There is mild intrahepatic biliary dilatation but the liver is otherwise no rmal. The patient is status post cholecystectomy but there is no extrahepatic biliary dilatation. The common bile duct measures 6 mm. There is no abnormality of the spleen, pancreas, and adrenal glands. Both kidneys are normal in size, shape, position and contour. There is no hydronephrosis or hydroure ter. No renal or ureteral calculi are present. There are no abnormal retrocrural or periaortic nodes. No ascites is present. READIN. Status post cholecystectomy. The common bile duct measures 6 mm. There is mild intrahepatic bilia ry dilatation and this is probably secondary to the cholecystectomy status. 2. The CT abdomen scan itself is normal. CT PELVIS SCAN WITH IV CONTRAST, 03/05/2018 9:37 AM: Clinical History: See above. Previous Exam: None at this facility. Scans are performed from just superior to the umbilicus to the symphysis pubis with IV contrast. This is the same bolus of contrast used for the CT scans of the abdomen. Scans through the lower abdomen and pelvis show no masses, enhancing lesions, or abnormal fluid colle ctions. There is no adenopathy. The appendix is not identified with certainty but there is no inflamm atory mass either in the cecum or in the right lower quadrant. The small bowel, terminal ileum, and i leocecal valve are normal. The colon is normal. There is no evidence of colitis or of a fecal impacti on. There are no hernias. The uterus and both ovaries are atrophic but otherwise normal. READING: Normal CT scan of the pelvis with IV contrast.
--- NOTE | 2018-03-05 12:48 | PDOC ---
HPI - History of Present Illness History of Present Illness: Marizol chinchilla 82-year-old female comes in with bilateral shoulder pain and chest pain has seen her primary care physician last Friday and the stress test was recommended he comes in with increased pain in her shoulders and chest denies nausea vomiting no dysuria or hematuria will be admitted for rule out initial troponins are negative. Patient says that she is not real chest pain just some heaviness and shortness of breath also comes on with exertion is 1-2 out of 10 at present time I will give her a sublingual nitroglycerin Past Medical History Medical History: 1. Hypertension. 2. Age-related macular degeneration. 3. Osteoporosis Surgical History: 1. Cholecystectomy. 2. Left Total knee replacement Family History: Reviewed an Not Pertinent Past Social History: Doesn't smoke doesn't drink, lives by herself in independent no drugs. Tobacco Use: Never Smoker In the Past 12 Months, Have Used or Abuse Any of the Following Substance: None Medication / Allergies Home Medications: Home Medications 3 Medication Instructions Recorded Confirmed Type Ergocalciferol (Vitamin D2) 1.25 mg ORAL WEEKLY #8 tab 05/04/14 03/03/18 History [Vitamin D2] Estradiol Vaginal Cream 0.01% 1 applic VAGINAL QD #1 tube 08/21/16 03/03/18 Rx [Estrace Vaginal Cream 0.01%] Brimonidine Tartrate/Timolol 1 drp OP QD #1 drp 10/01/16 03/03/18 History [Combigan 0.2%-0.5% Eye Drops] Meclizine HCl [Antivert] 25 mg PO TID PRN #12 tab.chew 11/01/16 03/03/18 Rx lisinopril 20 1 ea PO DAILY #30 tab 10/20/17 03/03/18 Rx mg-hydrochlorothiazide 25 mg tablet nitroglycerin 0.3 mg sublingual 0.3 mg SL Q5M PRN #10 tab 03/03/18 03/03/18 Rx tablet simvastatin 20 mg tablet 20 mg PO QPM #30 tab 03/03/18 03/03/18 Rx Allergies/Adverse Reactions: Allergies 3 Allergy/AdvReac Type Severity Reaction Status Date / Time Penicillins Allergy Intermediate DYSPHORIA Verified 03/03/18 13:42 Shellfish *RETIRED-05/21/12 Allergy Intermediate DYSPHORIA Verified 03/03/18 13: 42 [Shellfish] Review of Systems - Review of Systems All Systems: Reviewed & No Additional Complaints Except as Stated - Respiratory Respiratory: DENIES: Negative System Review, Cough, Sputum, Dyspnea At Rest, Dyspnea with Exertion, Pleuritic Pain, Hemoptysis, Wheezing, Other, See HPI - Cardiovascular Cardiovascular: REPORTS: Chest Pain - Gastrointestinal Gastrointestinal / Abdominal: DENIES: Negative System Review, Nausea, Vomiting, Diarrhea, Constipation, Abdominal Pain, Bloody Stool, Poor Appetite, Heartburn, Regurgitation, Bloating, Lactose Intolerance, Melena, Bright Red Blood per Rectum, Other, See HPI - Genitourinary Genitourinary: DENIES: Negative System Review, Pain, Burning, Hematuria, Incontinence, Urgency, Hesitant Stream, Decreased Stream, Nocutria, Discharge, Sexual Dysfunction, Other, See HPI Exam - Vitals Vital Signs: Vital Signs Temperature 96.4 F Temperature Source Temporal Artery Scan Pulse Rate [Right Radial] 73 Respiratory Rate 14 Blood Pressure [Left Arm] 148/78 Pulse Ox 98 Oxygen Delivery Method Room Air Height 5 ft 5 in Weight 131 lb - General General Appearance: No Acute Distress, Cooperative - Respiratory Respiratory Exam: POSITIVE: Clear to Auscultation - Bilaterally, Breathing Non Labored, Normal To Percussion, Normal to Percussion and Palpation - Cardiovascular Cardiovascular Exam: POSITIVE: RRR, No Murmur, No Clicks, No Gallops, No Rubs, PMI Non-Displaced - GI/Abdominal GI/Abdominal Exam: POSITIVE: Normal Bowel Sounds, Non Tender, Non Distended, Soft, No Masses, No Hepatomegaly, No Splenomegaly, No Organomegaly - Extremities Extremities Exam: POSITIVE: No Clubbing Present, No Edema Present Results - Labs CBC and BMP: 03/05/18 09:07 03/05/18 09:07 Assessment and Plan - Patient Problems (1) Chest pain Current Visit: Yes Status: Acute Comment: We'll admit for rule out troponins every 63 if rules out we'll order chemical stress test Code(s): R07.9 - Chest pain, unspecified (2) Essential hypertension Current Visit: No Status: Acute Onset Date: 02/23/13 Comment: Stable Code(s): I10 - Essential (primary) hypertension
[2018-03-05] MEDS ORDERED: ERGOCALCIFEROL 1.25 MG ORAL SCH (13:38)
[2018-03-05] MEDS ORDERED: MORPHINE SULFATE 2 MG/1 ML IV PRN ×2 (13:38→14:47)
[2018-03-05] MEDS ORDERED: MECLIZINE 25 MG CHEWABLE TABLET PO PRN (13:38)
[2018-03-05] MEDS ORDERED: ESTRADIOL VAGINAL VAGINAL SCH (13:38)
[2018-03-05] MEDS ORDERED: LIDOCAINE W/ SODIUM BICARB 0.5 ML SYR SUBD PRN (13:38)
[2018-03-05] MEDS ORDERED: CALCIUM CARBONATE 500 MG (TUMS) CHEWABLE TABLET PO PRN (13:38)
[2018-03-05] MEDS ORDERED: ONDANSETRON 4 MG/2 ML VIAL IVP PRN (13:38)
[2018-03-05] MEDS ORDERED: NITROGLYCERIN 0.4 MG SL TAB (BOTTLE OF 3) SL PRN (14:25)
[2018-03-05] MEDS ORDERED: MORPHINE SULFATE 4 MG/1 ML IV PRN (14:47)
[2018-03-05] MEDS ORDERED: MORPHINE SULFATE 10 MG/1 ML IV PRN (14:47)
[2018-03-05 18:07] LABS: AMPHETAMINE SCREEN NEGATIVE (NEG); CANNABINOID SCREEN,URINE NEGATIVE (NEG); COCAINE SCREEN NEGATIVE (NEG); METHADONE URINE SCREEN NEGATIVE (NEG); METHAMPHETAMINES SCREEN,URINE NEGATIVE (NEG); OPIATE SCREEN,URINE NEGATIVE (NEG); URINE SAMPLE TYPE VOIDED SPECIMEN; URINE SPECIFIC GRAVITY - MAN 1.026
[2018-03-05] MEDS ORDERED: BISACODYL 10 MG SUPPOSITORY RECTAL ONE (19:58)
[2018-03-05] MEDS: POTASSIUM CHLORIDE 20 MEQ TAB PO SCH (21:40)
[2018-03-05] MEDS: Simvastatin Tab 20 MG TAB PO SCH (21:40)
[2018-03-05] MEDS: TIMOLOL EACH EYE SCH (21:42)
[2018-03-05] MEDS: BRIMONIDINE TARTRATE EACH EYE SCH (21:42)
[2018-03-06 05:37] LABS: CHOL/HDL RATIO 3.56 RATIO (0-4.0)
[2018-03-06] MEDS: HYDROCHLOROTHIAZIDE 25 MG TABLET PO SCH ×2 (07:15→11:40)
[2018-03-06] MEDS: LISINOPRIL 20 MG TABLET PO SCH ×2 (07:15→11:33)
[2018-03-06] MEDS ORDERED: LISINOPRIL PO SCH (09:00)
[2018-03-06] MEDS ORDERED: HYDROCHLOROTHIAZIDE PO SCH (09:00)
[2018-03-06 09:44] LABS: BLOOD UREA NITROGEN 17 mg/dL (7-22); BUN/CREATININE RATIO 21.25 (6-20); SERUM ALBUMIN 3.4 g/dL (3.5-4.8)
[2018-03-06] MEDS: TIMOLOL EACH EYE SCH ×3 (10:32→20:20)
[2018-03-06] MEDS: BRIMONIDINE TARTRATE EACH EYE SCH ×3 (10:32→20:20)
[2018-03-06] MEDS: POTASSIUM CHLORIDE 20 MEQ TAB PO SCH ×3 (10:33→20:19)
[2018-03-06] MEDS: ENOXAPARIN SODIUM 40 MG/0.4 ML SYRINGE SUBCUT SCH ×2 (10:33→11:32)
--- NOTE | 2018-03-06 11:33 | STRESSTEST ---
[facility] [place] Interpretive Statements 82 yo female comes in with chest paindid stress portion first no acute changes on ekg will await pics . negative [email or web address]
--- NOTE | 2018-03-06 11:40 | EKG ---
[address] [address] Measurements Intervals [place] Rate: 69 P: 83 NH: 174 QRS: 64 QRSD: 77 T: 77 QT: 391 QTc: 411 Interpretive Statements SINUS RHYTHM Compared to ECG 03/03/2018 14:52:01 No significant changes Electronically Signed On 03-06-18 12:09:07 MDT by Ashok Shin [id number]
--- NOTE | 2018-03-06 12:12 | PDOC(PROG) ---
Interval History: Doing well no complaints had her stress test today no chest pain during her stress test or heaviness Objective : Data - Labs CBC and BMP: 03/05/18 09:07 03/06/18 04:35 Objective : Exam - General General Appearance: Cooperative - Respiratory Respiratory Exam: Clear to Auscultation - Bilaterally, Breathing Non Labored, Normal To Percussion, Normal to Percussion and Palpation - Cardiovascular Cardiovascular Exam: RRR, No Murmur, No Clicks, No Gallops, No Rubs, PMI Non- Displaced - GI/Abdominal GI/Abdominal Exam: Normal Bowel Sounds, Non Tender, Non Distended, Soft, No Masses, No Hepatomegaly, No Splenomegaly, No Organomegaly - Extremities Extremities Exam: Normal Capillary Refill, No Clubbing Present, No Edema Present Assessment and Plan - Patient Problems (1) Chest pain Current Visit: Yes Status: Acute Comment: Stress test today resting part tomorrow we'll await results for final decision making on possible transferred to cardiology Code(s): R07.9 - Chest pain, unspecified (2) Essential hypertension Current Visit: No Status: Acute Onset Date: 02/23/13 Comment: Stable at present time Code(s): I10 - Essential (primary) hypertension
[2018-03-06] MEDS: ASPIRIN 81 MG (BABY) CHEWABLE TABLET PO SCH (15:25)
[2018-03-06] MEDS: Simvastatin Tab 20 MG TAB PO SCH (20:19)
[2018-03-07] MEDS: LISINOPRIL 20 MG TABLET PO SCH (07:20)
[2018-03-07] MEDS: HYDROCHLOROTHIAZIDE 25 MG TABLET PO SCH (07:20)
[2018-03-07 07:29] VITALS: RESP 18; O2SAT 96
[2018-03-07] MEDS: ASPIRIN 81 MG (BABY) CHEWABLE TABLET PO SCH (09:52)
[2018-03-07] MEDS: ENOXAPARIN SODIUM 40 MG/0.4 ML SYRINGE SUBCUT SCH (09:52)
[2018-03-07] MEDS: POTASSIUM CHLORIDE 20 MEQ TAB PO SCH (09:52)
[2018-03-07] MEDS: TIMOLOL EACH EYE SCH (09:55)
[2018-03-07] MEDS: BRIMONIDINE TARTRATE EACH EYE SCH (09:55)
--- NOTE | 2018-03-07 12:05 | DCSUMMARY ---
Hospitalization Summary Hospital Course: Final Discharge Diagnosis: Current Visit Problems Problem Status Onset Code Chest pain Acute R07.9 Diagnostic Data, Laboratory Data, and Procedures of Signifigance: History and Physical pertinent to Admission: Course of Hospitalization: Marziol is a very nice 83-year-old female who comes in with chest pain and heaviness in her chest some nausea vomiting and negative troponins we did perform a Lexiscan stress test which shows a significant reversible defect. I discussed the case with the patient and patient would like further evaluation and treatment by cardiology was possible catheter we did give her sublingual nitroglycerin for her chest pressure her Lexiscan stress test shows a reversible defect in the anteroapical distribution corresponding to the LAD stenosis distal patient was accepted by Dr. Wilson for possible heart cath Study will be included with the package and also is at the end of my note Medical History: 1. Hypertension. 2. Age-related macular degeneration. 3. Osteoporosis Surgical History: 1. Cholecystectomy. 2. Left Total knee replacement Family History: Reviewed an Not Pertinent Past Social History: Doesn't smoke doesn't drink, lives by herself in independent no drugs. Tobacco Use: Never Smoker In the Past 12 Months, Have Used or Abuse Any of the Following Substance: None On the date of discharge, the patient was examined: Gen.: No acute distress, alert, nontoxic Heart: Regular rate and rhythm, no murmurs, clicks, gallops, or rubs Lungs: Clear to auscultation bilaterally, breathing is nonlabored Abdomen/GI: Normal tones on auscultation, soft, nontender, nondistended Musculoskeletal/extremities: No clubbing, cyanosis, or edema Vitals reviewed and are listed below Assessment and Plan: 1. As per discharge assessments above 2. Disposition: [facility] 3. Condition on discharge, stable and improved. 4. Diet: Nothing by mouth 5. Activities: resume normal activities 6. Follow-Up: 1. PCP 2. 7. Medications at the Time of Discharge: 8. Time, care, counseling and coordination of care for this discharge is greater than 30 minutes. Patient: Nini Ortega : 1935 Sex: F Age: 82 Exam Name: GA Myocardial Multi-Spect Exam Date: 03/06/18 Report # : [id number] CPT Code: 10378 EMR/MR #: [id number] Ordering: GERONIMO LOPEZ Admiting: GERONIMO LOPEZ MD. Primary: Xavi Ch MD. Attending: GERONIMO LOPEZ MD. Signed 2 DAY LEXISCAN STRESS & REST MYOCARDIAL PERFUSION SCANS, 03/06/2018-03/07/2018: Clinical History: Chest pain. Previous Exam: None at this facility. Monitoring Physician: Dr. Geronimo Lopez. Dose: Stress dose: 35 mCi on 03/06/2018. Rest dose: 34 mCi on 03/07/2018. Quantitative Analysis: [employer] program with low dose limited CT chest scan attenuation correction. Exam Quality: Excellent. Rejected Beats: Stress = 2%; Rest = 0%. HR: Stress = 73-74 b/m; Rest = 63-65 b/m. Left ventricular chamber sizes are normal at stress and rest. Transient ischemic dilatation ratio is 1.15 (normal Toby TID <= 1.22; normal Lexiscan TID <= 1.33). Stress LVEF: 71%; rest LVEF: 74%. The attenuated and attenuated corrected scans are concordant and both show an anteroapical stress defect with reversibility on the resting scans indicating ischemia corresponding to the distal portion of the LAD. All remaining hawkins show a normal stress and rest myocardial perfusion. There is akinesis of the anteroapical segment at stress and this improves to hypokinesis of the anterior wall with residual akinesis of the apex. All other hawkins contract vigorously. There is decreased myocardial thickening in the anteroapical segment at stress and rest. All other hawkins show normal myocardial thickening at stress and rest. Limited CT scans of the heart coronary artery calcifications in the left mainstem, the proximal third of the LAD, and a few scattered calcifications in the proximal portion of the left circumflex artery. There are no lung nodules or enlarged nodes. Readin. Normal stress and rest left ventricular chamber size. Transient ischemic dilatation ratio is normal at 1.15. 2. Normal stress and rest LVEF values of 71% and 74%, respectively. 3. Abnormal perfusion scans showing a reversible defect in the anteroapical distribution indicating ischemia corresponding to a distal LAD stenosis. All other hawkins perfuse normally. 4. Akinesis of the anteroapical segment at stress with improvement to hypokinesis of the anterior wall but with residual akinesis of the apex. There is decreased myocardial thickening in the anteroapical segment at stress and rest. All other hawkins demonstrate normal wall motion and thickening at stress and rest. 5. Coronary artery calcifications are present in the left mainstem and the proximal third of the LAD and with a few calcifications in the proximal left circumflex artery. 6. There are no pulmonary nodules or masses. There is no mediastinal or hilar adenopathy. Dictated By: 03/07/18 1158 REBECA YOUNG MD. Signed By: 03/07/18 1223 REBECA YOUNG MD. Exam - Vitals Vital Signs: Vital Signs Temperature 97 F Temperature Source Temporal Artery Scan Pulse Rate [Pulse Oximeter] 70 Pulse Rate [Apical] 76 Pulse Rate [Telemetry] 64 Pulse Rate [Right Radial] 73 Pulse Rate 67 Respiratory Rate 18 Blood Pressure [Left Arm] 148/63 Pulse Ox 96 Oxygen Delivery Method Room Air Height 5 ft 5 in Weight 129 lb 8 oz Patient Problems - Patient Problem List (1) Chest pain Current Visit: Yes Status: Acute Code(s): R07.9 - Chest pain, unspecified Category: Medical (2) Essential hypertension Current Visit: No Status: Acute Onset Date: 02/23/13 Code(s): I10 - Essential (primary) hypertension Category: Medical
--- NOTE | 2018-03-07 12:23 | DI ---
2 DAY LEXISCAN STRESS & REST MYOCARDIAL PERFUSION SCANS, 03/06/2018-03/07/2018: Clinical History: Chest pain. Previous Exam: None at this facility. Monitoring Physician: Dr. Lew Lopez. Dose: Stress dose: 35 mCi on 03/06/2018. Rest dose: 34 mCi on 03/07/2018. Quantitative Analysis: [employer] program with low dose limited CT chest scan attenuation correctio n. Exam Quality: Excellent. Rejected Beats: Stress = 2%; Rest = 0%. HR: Stress = 73-74 b/m; Rest = 63-6 5 b/m. Left ventricular chamber sizes are normal at stress and rest. Transient ischemic dilatation ratio is 1.15 (normal Toby TID <= 1.22; normal Lexiscan TID <= 1.33). Stress LVEF: 71%; rest LVEF: 74%. The a ttenuated and attenuated corrected scans are concordant and both show an anteroapical stress defect w ith reversibility on the resting scans indicating ischemia corresponding to the distal portion of the LAD. All remaining hawkins show a normal stress and rest myocardial perfusion. There is akinesis of th e anteroapical segment at stress and this improves to hypokinesis of the anterior wall with residual akinesis of the apex. All other hawkins contract vigorously. There is decreased myocardial thickening i n the anteroapical segment at stress and rest. All other hawkins show normal myocardial thickening at s tress and rest. Limited CT scans of the heart coronary artery calcifications in the left mainstem, th e proximal third of the LAD, and a few scattered calcifications in the proximal portion of the left c ircumflex artery. There are no lung nodules or enlarged nodes. Readin. Normal stress and rest left ventricular chamber size. Transient ischemic dilatation ratio is norm al at 1.15. 2. Normal stress and rest LVEF values of 71% and 74%, respectively. 3. Abnormal perfusion scans showing a reversible defect in the anteroapical distribution indicating ischemia corresponding to a distal LAD stenosis. All other hawkins perfuse normally. 4. Akinesis of the anteroapical segment at stress with improvement to hypokinesis of the anterior wa ll but with residual akinesis of the apex. There is decreased myocardial thickening in the anteroapic al segment at stress and rest. All other hawkins demonstrate normal wall motion and thickening at stres s and rest. 5. Coronary artery calcifications are present in the left mainstem and the proximal third of the LAD and with a few calcifications in the proximal left circumflex artery. 6. There are no pulmonary nodules or masses. There is no mediastinal or hilar adenopathy.
[2018-03-07] MEDS ORDERED: Heparin Drip 25,000 UNIT/500 ML BAG IV SCH (12:30)
[2018-03-07 12:46] VITALS: BP 171/70; TEMP 97.2
== END 2018-03-07 13:48 | disposition short-term general hospital (02) ==
LOC: MED/SURG 08:41 → ER 08:41
PROVIDERS: ADMIT Internal Medicine; ATTEND Internal Medicine